=== PATIENT | female | born 1950 | race Caucasian/White ===

== ENCOUNTER 2025-02-18 21:39 | Emergency (ER) | payer OTHER, MEDICAID ==
[~2025-02-18] VITALS: Ht 160 cm; Wt 68.1 kg
[2025-02-18 22:53] LABS: Hematocrit 43.9 % (36.0-46.0); Hemoglobin 15.1 g/dL (12.2-16.2); Mean Corpuscular Hemoglobin 30.5 pg (28.0-32.0); Mean Corpuscular Volume 88.5 fL (80.0-100.0); Nucleated Red Blood Cells % 0.0 %
[2025-02-18 23:11] LABS: Alanine Aminotransferase 25 U/L (7-40); Albumin 4.6 g/dL (3.2-4.8); Alkaline Phosphatase 90 U/L (46-116); Anion Gap 11 (5-15); BUN/Creatinine Ratio 15.1 (10.0-20.0); Bilirubin, Total 0.8 mg/dL (0.2-1.0); Blood Urea Nitrogen 11 mg/dL (9-23); Calcium 9.2 mg/dL (8.7-10.4); Carbon Dioxide 23 mmol/L (20-31); Chloride 100 mmol/L (98-107); Lipase 31 U/L (12-53); Potassium 3.7 mmol/L (3.5-5.1); Total Protein 6.3 g/dL (5.7-8.2)
[2025-02-18 23:13] LABS: Glucose 133 mg/dL (74-106); Sodium 134 mmol/L (136-145)
--- NOTE | 2025-02-18 23:25 | ED.PDOC ---
History of Present Illness HPI Comments 74 y/o F is BIBA for c/c intermittent, epigastric abdominal pain, nausea, and vomiting. 2x day duration of symptoms following initial unprovoked onset. Pain is sharp in quality. Denies any bloody or bilious vomitus, diarrhea, constipation, urinary symptoms, fever, chills, or further associated symptoms. Chief Complaint: Abdominal Pain Time Seen by MD: 22:00 Reviewed Notes: Nurses Notes, Real Estate Firm Manager Notes, Medications, Allergies Allergies: Coded Allergies: No Known Drug Allergy (Verified Allergy, Unknown, 02/18/25) Home Meds Active Scripts Famotidine (PEPCID TABLET) 20 Mg Tb, 1 TAB PO BID PRN, #60 TAB 5 Refills Prov:YONI CHO MD 02/19/25 Ondansetron HCl (Ondansetron Hydrochloride) 8 Mg Tab, 8 MG PO Q6HP PRN, #30 TAB Prov:YONI CHO MD 02/19/25 Information Source: Patient, Emergency Med Personnel Mode of Arrival: EMS Severity: Moderate Timing: Days Duration: Intermittent Prehospital treatment: 12 Lead EKG, Assistant Elementary Teacher Past Medical History PAST MEDICAL HISTORY: Anxiety, Depression, HTN, UTI'S Past Medical History (Other): Bipolar disorder All Other Systems: Reviewed and Negative (Comprehensive systems review obtained and negative except for what is stated in the HPI.) Physical Exam General Appearance: No Apparent Distress, Normal HEENT: Normal ENT Inspection, Pharynx Normal, TMs Normal Neck: Full Range of Motion, Non-Tender, Normal, Normal Inspection Respiratory: Chest Non-Tender, Lungs Clear, No Accessory Muscle Use, No Respiratory Distress, Normal Breath Sounds Cardiovascular: No Edema, No JVD, No Murmur, No Gallop, Normal Peripheral Pulses, Regular Rate/Rhythm Breast Exam: Deferred Gastrointestinal: Epigastric (tenderness), No Organomegaly, No Pulsatile Mass, Normal Bowel Sounds, RUQ (tenderness), Soft, Tenderness (epigastric and RUQ) Genitalia: Deferred Pelvic: Deferred Rectal: Deferred Extremities: No calf tenderness, Normal capillary refill, Normal inspection, Normal range of motion, Non-tender, No pedal edema Musculoskeletal : Apperance: Normal Neurologic: Alert, 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 Was a procedure done?: No Differential Dx Considerations may include: Gastritis, gastroenteritis, GERD, PUD, among others X-Ray, Labs, Meds, VS Vital Signs Date Time Temp Pulse Resp B/P (MAP) Pulse Ox O2 Delivery O2 Flow Rate FiO2 02/19/25 02:20 98.0 75 17 193/78 (116) 97 98.0 02/18/25 23:45 98.3 73 18 156/87 (110) 96 98.3 02/18/25 23:45 Room Air* 0 21 02/18/25 22:05 98.8 92 18 205/107 (139) 98 98.8 Lab Test 02/19/25 00:11 02/18/25 23:17 02/18/25 22:22 Range/Units Troponin I High Sensitivity 11 7 </=34 ng/L Urine Color Light-yellow Yellow Urine Clarity Clear Clear Urine pH 7.0 5.0-9.0 [address] 1.049 H 1.001-1.035 Urine Protein Trace H Negative Urine Ketones Negative Negative Urine Blood Negative Negative /uL Urine Nitrite Negative Negative Urine Bilirubin Negative Negative Urine Urobilinogen Normal Negative mg/dL Urine Leukocyte Esterase Negative Negative /uL Urine RBC 2 0 - 4 /hpf Urine Microscopic WBC 2 0-5 /HPF Urine Squamous Epithelial Cells Few <5 /hpf Urine Bacteria None seen None Seen /hpf Urine Glucose Normal Normal mg/dL White Blood Count 9.7 4.4-10.8 10^3/uL Red Blood Count 4.96 4.0-5.20 10^6/uL Hemoglobin 15.1 12.2-16.2 g/dL Hematocrit 43.9 36.0-46.0 % Mean Corpuscular Volume 88.5 80.0-100.0 fL Mean Corpuscular Hemoglobin 30.5 28.0-32.0 pg Mean Corpuscular Hemoglobin Concent 34.5 32.0-36.0 g/dL Red Cell Distribution Width 13.6 11.8-14.3 % Platelet Count 242 140-450 10^3/uL Mean Platelet Volume 8.1 6.9-10.8 fL Neutrophils (%) (Auto) 77.3 37.0-80.0 % Lymphocytes (%) (Auto) 13.4 10.0-50.0 % Monocytes (%) (Auto) 7.9 0.0-12.0 % Eosinophils (%) (Auto) 0.9 0.0-7.0 % Basophils (%) (Auto) 0.5 0.0-2.0 % Neutrophils # (Auto) 7.5 1.6-8.6 10 ^3/uL Lymphocytes # (Auto) 1.3 0.4-5.4 10 ^3/uL Monocytes # (Auto) 0.8 0-1.3 10 ^3/uL Eosinophils # (Auto) 0.1 0-0.8 10 ^3/uL Basophils # (Auto) 0 0-0.2 10 ^3/uL Nucleated Red Blood Cells 0.0 % Sodium Level 134 L 136-145 mmol/L Potassium Level 3.7 3.5-5.1 mmol/L Chloride Level 100 98-107 mmol/L Carbon Dioxide Level 23 20-31 mmol/L Anion Gap 11 5-15 Blood Urea Nitrogen 11 9-23 mg/dL Creatinine 0.73 0.550-1.02 mg/dL Glomerular Filtration Rate Calc 86 >90 mL/min BUN/Creatinine Ratio 15.1 10.0-20.0 Serum Glucose 133 H 74-106 mg/dL Calcium Level 9.2 8.7-10.4 mg/dL Total Bilirubin 0.8 0.2-1.0 mg/dL Aspartate Amino Transferase (AST) 31 13-40 U/L Alanine Aminotransferase (ALT) 25 7-40 U/L Alkaline Phosphatase 90 46-116 U/L Total Protein 6.3 5.7-8.2 g/dL Albumin 4.6 3.2-4.8 g/dL Lipase 31 12-53 U/L Current Medications Medications (Trade) Dose Ordered Sig/Michelle Route Start Time Stop Time Status Last Admin Ondansetron HCl (Zofran) 4 mg ONCE ONCE IV 02/18/25 22:15 02/18/25 22:16 DC 02/18/25 23:52 Sodium Chloride 1,000 ml @ 1,000 mls/hr Q1H ONCE IVB 02/18/25 22:15 02/18/25 23:14 DC 02/18/25 23:46 PATIENT: AIDAN DURAN ACCT: [id number] UNIT: [id number] : 1950 LOC: ER ROOM / BED: / AGE / SEX: 74 / F ADM STATUS: REG ER SERVICE 00 ORDERING PHYSICIAN: YONI CHO MD PROCEDURE(s): ABPLIV - CT AB PEL WITH IV CON ONLY REASON: abd pain ORDER NUMBER(s): [id number], ACCESSION NUMBER(s): [id number] CT OF THE ABDOMEN AND PELVIS WITH CONTRAST. HISTORY: abd pain COMPARISON: None TECHNIQUE: Helical axial CT images of the abdomen and pelvis were obtained with intravenous contrast. Multiplanar reformats. One or more of the following rad iation dose reduction techniques were used for this examination: automated exposure control, adjustment of the mA and/or kV according to patient size, use of iterative reconstruction technique. FINDINGS: Imaged lung bases are grossly clear. Liver: Focal hypoattenuation in the anterior right hepatic lobe near the falciform ligament may reflect an area of fatty infiltration. No other discrete hepatic lesions as visualized. Gallbladder and biliary system: No sizable, radiopaque cholelithiasis or biliary ductal dilatation. Pancreas: Negative. Spleen: Negative. Adrenal Glands: Negative. Kidneys and collecting system: No hydroureteronephrosis small cortical cysts in the bilateral lower renal poles. Retroperitoneum: Moderately advanced aortoiliac atherosclerotic changes. No evidence of abdominal aortic aneurysm. Lymph nodes: No discretely enlarged lymph nodes identified. Bowel: Thickening versus underdistention of the stomach. No evidence of small- bowel obstruction. The appendix is not clearly delineated, however, no pericecal inflammatory changes are noted. No free intraperitoneal air or fluid identified. Pelvis: No sizable bladder calculus. Mild thickening versus underdistention of the urinary bladder. Osseous structures: No destructive osseous lesions identified. Multilevel degenerative changes of the lumbar spine. IMPRESSION: No bowel obstruction, free intraperitoneal air/fluid or sizable inflammatory collections identified at this time. Thickening versus underdistention of the stomach. Correlate for possible gastritis. Thickening versus underdistention of the urinary bladder is also noted. Correlate to exclude cystitis/ UTI. HS:Y Time of 1ST Reevaluation: 22:30 Reevaluation 1ST: Unchanged Patient Education/Counseling: Diagnosis, Treatment Family Education/Counseling: No Family Present SEPSIS Sepsis Screen Date sepsis recognized/suspect: Feb 18, 2025 Time Sepsis recognized/suspect: 2147 Recent Procedure: No On Antibiotic Therapy: No Respiratory Rate >20: No Heart Rate >90: No Temp<36 C (96.8 F) or >38.3 C: No SBP <90 or MAP <65 mmHG: No New Acute Mental Status Change: No Is the patient on CPAP, BIPAP,: No Physician Orders Ct Ab Pel With Iv Con Only (02/18/25 22:01) Electrocardigram (02/18/25 22:01) Saline Lock (02/18/25 23:16) Vital Signs Date Time Temp Pulse Resp B/P (MAP) Pulse Ox O2 Delivery O2 Flow Rate FiO2 02/19/25 02:20 98.0 75 17 193/78 (116) 97 98.0 02/18/25 23:45 98.3 73 18 156/87 (110) 96 98.3 02/18/25 23:45 Room Air* 0 21 02/18/25 22:05 98.8 92 18 205/107 (139) 98 98.8 Laboratory Tests Test 02/18/25 22:22 White Blood Count 9.7 10^3/uL (4.4-10.8) Medications Medications Dose Ordered Sig/Michelle Route Start Time Stop Time Status Last Admin Dose Admin Ondansetron HCl 4 mg ONCE ONCE IV 02/18/25 22:15 02/18/25 22:16 DC 02/18/25 23:52 Sodium Chloride 1,000 ml @ 1,000 mls/hr Q1H ONCE IVB 02/18/25 22:15 02/18/25 23:14 DC 02/18/25 23:46 Departure 1 Departure Time of Disposition: 00:30 Impression: Primary Impression: Abdominal pain Disposition: 01 HOME / SELF CARE / HOMELESS Condition: Stable e-Prescriptions Famotidine (PEPCID TABLET) 20 Mg Tb 1 TAB PO BID PRN, #60 TAB 5 Refills Prov: YONI CHO MD 02/19/25 Ondansetron HCl (Ondansetron Hydrochloride) 8 Mg Tab 8 MG PO Q6HP PRN, #30 TAB Prov: YONI CHO MD 02/19/25 Discharged With: Self Critical Care Note Critical Care Time?: No Stability Stability form required: No Heart Score Heart Score: Heart Score Response (Comments) Value History N/A 0 EKG N/A 0 Age N/A 0 Risk Factors N/A 0 Troponin N/A 0 Total 0 I personally scribed for YONI CHO MD ([email or web address]) on 02/18/25 at 23:25. Electronically submitted by Zion Springer ([email or web address]). I personally scribed for YONI CHO MD ([email or web address]) on 02/19/25 at 01:52. Electronically submitted by Jose Polo ([email or web address]). YONI CHO MD Feb 18, 2025 23:25
[2025-02-18] MEDS: IOHEXOL 300 MG/ML 100ML BOTTLE IJ ONE (23:46)
[2025-02-18] MEDS: SODIUM CHLORIDE 0.9% 1,000 ML IVB ONE (23:46)
[2025-02-18] MEDS: ONDANSETRON HCL 4 MG/2 ML VIAL IV ONE (23:52)
[2025-02-19 00:24] LABS: Urine Protein, UAD TRACE (Negative)
--- NOTE | 2025-02-19 01:34 | DVH ---
CT OF THE ABDOMEN AND PELVIS WITH CONTRAST. HISTORY: abd pain COMPARISON: None TECHNIQUE: Helical axial CT images of the abdomen and pelvis were obtained with intravenous contrast. Multiplanar reformats. One or more of the following radiation dose reduction techniques were used fo r this examination: automated exposure control, adjustment of the mA and/or kV according to patient s ize, use of iterative reconstruction technique. FINDINGS: Imaged lung bases are grossly clear. Liver: Focal hypoattenuation in the anterior right hepatic lobe near the falciform ligament may refle ct an area of fatty infiltration. No other discrete hepatic lesions as visualized. Gallbladder and biliary system: No sizable, radiopaque cholelithiasis or biliary ductal dilatation. Pancreas: Negative. Spleen: Negative. Adrenal Glands: Negative. Kidneys and collecting system: No hydroureteronephrosis small cortical cysts in the bilateral lower r enal poles. Retroperitoneum: Moderately advanced aortoiliac atherosclerotic changes. No evidence of abdominal ao rtic aneurysm. Lymph nodes: No discretely enlarged lymph nodes identified. Bowel: Thickening versus underdistention of the stomach. No evidence of small-bowel obstruction. The appendix is not clearly delineated, however, no pericecal inflammatory changes are noted. No free in traperitoneal air or fluid identified. Pelvis: No sizable bladder calculus. Mild thickening versus underdistention of the urinary bladder. Osseous structures: No destructive osseous lesions identified. Multilevel degenerative changes of th e lumbar spine. IMPRESSION: No bowel obstruction, free intraperitoneal air/fluid or sizable inflammatory collections identified a t this time. Thickening versus underdistention of the stomach. Correlate for possible gastritis. Thickening versus underdistention of the urinary bladder is also noted. Correlate to exclude cystiti s/ UTI. HS:Y
[2025-02-19] MEDS ORDERED: FAMO20TA10 PO (02:26)
[2025-02-19] MEDS ORDERED: ONDA-180 PO (02:26)
[2025-02-19] MEDS: hydrALAZINE HCL 20 MG/ML VL IV ONE (04:30)
[2025-02-19 04:54] VITALS: BP 153/65; PULSE 71; RESP 14; TEMP 98.3; O2SAT 96
== END 2025-02-19 05:03 | disposition home or self-care (01) ==
LOC: ER 21:39
DX: R10.13 Epigastric pain (principal); F41.9 Anxiety disorder, unspecified; F32.A Depression, unspecified; I10 Essential (primary) hypertension; Z87.440 Personal history of urinary (tract) infections; Z79.899 Other long term (current) drug therapy
CPT/HCPCS: 36415; 74177; 80053; 81001; 83690; 84484; 85025; 96361; 96374; 99285; J2405; J7030; Q9967